=== PATIENT | male | born 1940 | race Caucasian/White ===

== ENCOUNTER → 2016-04-06 | Outpatient (CLI) | payer OTHER ==
[~2016-04-06] MED LIST: BISOPROLOL FUMA10 MG PO; DOXYCYCLINE 10100 MG PO; GLIPIZIDE XL5 MG; HYTRIN 5 M5 MG/1 CAP PO; LISINOPRIL10 MG PO; NEURONTIN 300300 M1 PO; NORCO 5-325 TA1 EACH; ONE DAILY MULT1 EAC2; VYTORIN 10-401 EACH PO
== END ==
LOC: MRI 10:29
DX: Z74.09 Other reduced mobility (principal); M47.812 Spondylosis without myelopathy or radiculopathy, cervical region; R26.9 Unspecified abnormalities of gait and mobility

== ENCOUNTER → 2016-04-08 | Outpatient (CLI) | payer OTHER | LOC: MRI | DX: R26.9 Unspecified abnormalities of gait and mobility (principal) ==

== ENCOUNTER 2018-06-19 18:14 | Emergency (ER) | payer OTHER ==
[~2018-06-19] VITALS: Ht 182.9 cm; Wt 90.7 kg
[2018-06-19] MEDS ORDERED: SYNTHROID88 MCG (19:38)
[2018-06-19] MEDS ORDERED: LIPITOR80 MG PO (19:39)
[2018-06-19 20:05] LABS: ABSOLUTE NEUTROPHILS 4.4 thou/uL (1.4-8.2); BASOPHILS 0.7 % (0.0-2.0); CALCIUM 10.1 mg/dL (8.5-10.1); CREATININE 1.1 mg/dL (0.7-1.3); EOSINOPHILS 1.9 % (0.0-3.0); HEMATOCRIT 32.7 % (42.0-52.0); LYMPHOCYTES 18.4 % (24.0-44.0); MCH 29.5 pg (26.0-34.0); MCHC 33.7 g/dL (28.0-37.0); MCV 87.6 fL (80.0-100.0); MONOCYTES 7.7 % (1.0-8.0); PLATELET COUNT 169 thou/uL (150-400); POLYS 71.3 % (36.0-66.0); POTASSIUM 3.9 mmol/L (3.5-5.1); RBC 3.74 mil/uL (4.50-6.00); RDW 13.9 % (10.5-14.5); WBC 6.2 thou/uL (4.0-11.0)
[2018-06-19 20:10] LABS: ALBUMIN 3.7 g/dL (3.4-5.0); DIRECT BILIRUBIN 0.2 mg/dL (<0.1-0.3); TOTAL BILIRUBIN 0.6 mg/dL (<0.1-1.0); TOTAL PROTEIN 7.5 g/dL (6.4-8.2)
[2018-06-19 20:14] LABS: URINE BILIRUBIN NEGATIVE (Negative); URINE BLOOD 3+ (Negative); URINE CLARITY CLEAR; URINE COLOR YELLOW; URINE GLUCOSE-RANDOM* NEGATIVE (Negative); URINE KETONES NEGATIVE (Negative); URINE LEUKOCYTES-REFLEX NEGATIVE (Negative); URINE NITRITE-REFLEX NEGATIVE (Negative); URINE PROTEIN (DIPSTICK) NEGATIVE (Negative); URINE SPECIFIC GRAVITY <= 1.005 (1.005-1.035); URINE UROBILINOGEN 0.2 E.U./dl (0.2-1.0)
[2018-06-19 20:24] LABS: BACTERIA-REFLEX 1-9 Few /HPF (None Seen); SQUAMOUS 0-3 Few /LPF (0-3); URINE WBC-REFLEX 6-15 Few /HPF (0-5)
[2018-06-19 20:25] LABS: CASTS None Seen /LPF (None Seen); CRYSTALS None Seen /LPF (None Seen)
[2018-06-19] MEDS ORDERED: ZOFRAN ODT4 MG PO (22:33)
[2018-06-19] MEDS ORDERED: ULTRAM 50MG TAB50 MG PO (22:33)
[2018-06-19] MEDS ORDERED: KEFLEX500 M1 PO (22:33)
[2018-06-19 22:57] VITALS: BP 176/77
== END 2018-06-19 22:50 | disposition home or self-care (01) ==
LOC: ER 18:14
PROVIDERS: Emergency Medicine
DX: N20.0 Calculus of kidney (principal); I25.10 Atherosclerotic heart disease of native coronary artery without angina pectoris; I10 Essential (primary) hypertension; E78.5 Hyperlipidemia, unspecified; E11.9 Type 2 diabetes mellitus without complications; Z95.5 Presence of coronary angioplasty implant and graft

== ENCOUNTER → 2018-07-13 | Outpatient (CLI) | payer OTHER ==
[~2018-07-13] MED LIST changes: +KEFLEX500 M1 PO; +LIPITOR80 MG PO; +SYNTHROID88 MCG; +ULTRAM 50MG TAB50 MG PO; +ZOFRAN ODT4 MG PO
== END ==
LOC: CAT 09:04
DX: N20.0 Calculus of kidney (principal); Z96.0 Presence of urogenital implants

== ENCOUNTER → 2018-12-06 | Outpatient (CLI) | payer OTHER | LOC: MRI 09:16 | DX: M47.26 Other spondylosis with radiculopathy, lumbar region (principal); M40.46 Postural lordosis, lumbar region; M43.16 Spondylolisthesis, lumbar region; M51.25 Other intervertebral disc displacement, thoracolumbar region; M25.78 Osteophyte, vertebrae; M51.16 Intervertebral disc disorders with radiculopathy, lumbar region; M48.061 Spinal stenosis, lumbar region without neurogenic claudication; M48.07 Spinal stenosis, lumbosacral region ==

== ENCOUNTER → 2018-12-18 | Outpatient (CLI) | payer OTHER ==
[~2018-12-18] VITALS: Ht 182.9 cm; Wt 95.3 kg
[~2018-12-18] MED LIST changes: +ACIDOPHILUS1 EAC4 PO; +ASPIR 8181 MG PO; +B COMPLEX1 EACH PO; +B-121000 MC2 PO; +BACTRIM DS TAB1 EACH PO; +BIOTIN1 M1 PO; +CALCIUM 500 +1 EAC5 PO; +CHROMIUM400 MCG PO; +CINNAMON500 MG PO; +COCONUT OIL1000 MG PO; +COQ1050 MG PO; +CRANBERRY200 MG PO; +DICLOFENAC SODI75 MG PO; +FLAX OIL1000 MG PO; +GARLIC1 EACH PO; +HIZENTRA10 GM/50 M SUBQ; +MAGOX 400400 MG PO; +NIACIN50 MG PO; +PROBIOTIC1 EAC1 PO; +SYNTHROID50 MCG PO; +TERAZOSIN HCL10 MG PO; +TUMERSAID TABL1 EACH PO; +VITAMINC500 PO
[2018-12-18 13:45] VITALS: BP 141/84
--- NOTE | 2018-12-18 14:08 | NUR ---
Pain Clinic Assessment: 1. History of Osteoarthritis: B/L KNEES B/L HANDS History of Rheumatoid Arthritis: NONE 2. Height: 6 ft. 0 in. 182.9 cm. Weight: 210.0 lb. oz. 95.256 kg. Patient's BMI: 28.5 3. Vital Signs: BP: 141/84 Pulse: 70 Resp: 16 Temp: 02 Sat: 96 ECG Mon: 4. Pain Intensity: 0-TODAY, 2 AVG, 9-WORST 5. Fall Risk: Dizziness: N Needs help standing or walking: Y Fallen in the last 3 months: N Fall risk comments: 6. Patient on Blood Thinner: None 7. History of Hypertension: Y 8. Opioid Therapy greater than 6 weeks: Opiate Contract Signed: 9. Risk Assessment Tool Provided: LOW 10. Functional Assessment Tool: 11. Recreational Drug Use: Never Drug Type: Tobacco Use: Never Smoker Tobacco Type: Amount or Packs/day: How Many Years: Alcohol Use: No Frequency: Quant:
--- NOTE | 2019-01-04 16:52 | HPC ---
[facility] [place] [address] PAIN MANAGEMENT CONSULTATION Name: ELTON PICKARD Manas [id number] Admission: 12/18/18 Attend Phys: Anthony Burrows MD Discharge: Date of : 40 Report #: [id number] THIS REPORT FOR: //name// CC: TOÑO Burrows DATE OF SERVICE: 12/18/2018 CHIEF COMPLAINT: Low back pain with radiation into the left lower extremity. The patient presents to pain clinic today without pain. When he initially made an appointment his pain score was 9/10. Over the last several weeks, he has improved and his average pain has been 2. He kept his appointment nonetheless for the consultation today. He describes his pain as a sciatica-like pain that began in his buttocks and down the right leg all the way to the knee. The pain initiated in 05/2018. He saw a chiropractor and received several treatments at first. 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 The drop foot is on the right. 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 He wears orthotics on both right and left legs. Chiropractor after a period of time found manipulations to be unsuccessful and began stem cell injections and platelet-rich plasma into the left knee. The knee feels somewhat better. The chiropractor also began decompression treatments, which actually made the pain worse each time, he went in. Several weeks ago, he stopped the treatments and has noted that as he has gotten farther away from decompression treatments, his pain is improved!. MEDICATIONS: Aspirin, atorvastatin, Bactrim, diclofenac, ____ weekly injections, levothyroxine, lisinopril, terazosin, and multiple supplements listed on the EMR. ALLERGIES: None. PAST MEDICAL HISTORY: History of anemia, hypertension. He had open heart surgery in 1997, history of kidney stones, prostate cancer, treated with resection and radiation. Multiple skin cancers. SOCIAL HISTORY: Retired. Denies tobacco, alcohol or any recreational drugs. REVIEW OF SYSTEMS: Positive for heart trouble and chest pain. Frequent urination, nocturia, kidney stones. PHYSICAL EXAMINATION: [facility] [address] [place] [address] PAIN MANAGEMENT CONSULTATION Name: ELTON PICKARD Room #: [facility].#: [id number] Admission: 12/18/18 Attend Phys: Anthony Burrows MD Discharge: Date of : 40 Report #: [id number] GENERAL: A pleasant gentleman, 6 feet tall, 210 pounds, BMI of 28.5. VITAL SIGNS: Blood pressure 141/84, heart rate 70, respirations 16, O2 sat 96. Pain intensity is 0/10. Moves independently from sitting to standing position, but without his right AFO for foot drop and left ankle orthotic and knee orthotic he has great difficulty in walking. He has marked antalgic gait. HEART: His chest is clear. There is a grade 3/6 systolic murmur heard throughout the entire precordium, best at the right sternal border. CHEST: Clear. Breath sounds are distant. ABDOMEN: Soft. MUSCULOSKELETAL: Examination of the spine reveals mild rotational scoliosis. Tenderness across the lumbosacral segment. EXTREMITIES: Lower extremities demonstrate weakness in hip flexion, leg extension. He has a foot drop on the right and marked weakness on the left with eversion of the foot. Sensation is intact bilaterally. Deep tendon reflexes are 2+ at knees, absent ankles bilaterally. IMPRESSION: 1. Chronic low back pain with radiculopathy, which is improved since stopping decompression therapy. 2. Osteoarthritis, status post PRP and stem cell injections. 3. History of prostate cancer, status post radiation with subsequent foot drop. 4. Coronary artery disease. 5. History of kidney stones. RECOMMENDATIONS: No treatment required today. His pain is 0. We discussed likely cause of his ongoing sciatica. I reviewed his MRI with him and discuss what appears to be multilevel spondylosis and severe spinal stenosis at L3-L4 and L4-L5. Followup visit as needed if pain returns for consideration of injection therapies. <ELECTRONICALLY SIGNED> By: Anthony Burrows MD 01/04/19 [id number] [id number] Anthony Burrows MD /nt
== END ==
LOC: PAIN 06:56
DX: M54.16 Radiculopathy, lumbar region (principal); I25.10 Atherosclerotic heart disease of native coronary artery without angina pectoris; M19.90 Unspecified osteoarthritis, unspecified site; Z85.46 Personal history of malignant neoplasm of prostate

== ENCOUNTER → 2019-05-24 | Outpatient (CLI) | payer OTHER ==
[2019-05-24 17:04] LABS: URINE BILIRUBIN NEGATIVE (Negative); URINE BLOOD NEGATIVE (Negative); URINE CLARITY CLEAR; URINE COLOR YELLOW; URINE GLUCOSE-RANDOM* NEGATIVE (Negative); URINE KETONES NEGATIVE (Negative); URINE LEUKOCYTES NEGATIVE (Negative); URINE NITRITE NEGATIVE (Negative); URINE PROTEIN (DIPSTICK) NEGATIVE (Negative); URINE UROBILINOGEN 0.2 E.U./dl (0.2-1.0)
== END ==
LOC: RAD 16:27
PROVIDERS: Urology
DX: R19.5 Other fecal abnormalities (principal); Z87.442 Personal history of urinary calculi

== ENCOUNTER → 2020-08-07 | Outpatient (CLI) | payer OTHER | LOC: ULTRA 08:31 | PROVIDERS: ATTEND Family Medicine | DX: K80.60 Calculus of gallbladder and bile duct with cholecystitis, unspecified, without obstruction (principal); R16.1 Splenomegaly, not elsewhere classified; N20.0 Calculus of kidney ==